=== PATIENT | female | born 1990 | race Caucasian/White ===

== ENCOUNTER → 2021-09-02 | Outpatient (CLI) | payer OTHER ==
[2021-09-02 19:20] LABS: Creatinine, Urine Random 59.2 mg/dL (27.00-270.00); Protein, Urine Random 16.9 mg/dL (0.0-11.9); Protein/Creat Ratio, Ur Random 0.3
== END | disposition home or self-care (01) ==
LOC: LAB SHORT 15:31
PROVIDERS: Obstetrics & Gynecology
DX: O14.93 Unspecified pre-eclampsia, third trimester (principal)
CPT/HCPCS: 82570; 84156; 87077; 87086; 87186

== ENCOUNTER → 2021-09-30 | Outpatient (CLI) | payer OTHER | END | disposition home or self-care (01) | LOC: LAB SHORT 12:05 | DX: Z34.03 Encounter for supervision of normal first pregnancy, third trimester (principal); Z3A.36 36 weeks gestation of pregnancy | CPT/HCPCS: 87081; 87150 ==

== ENCOUNTER 2021-10-25 19:45 | Inpatient (IN) | payer OTHER ==
[~2021-10-25] VITALS: Ht 157.5 cm; Wt 120.0 kg
[2021-10-25] MEDS ORDERED: PRENATAL TABLE1 EAC2 PO (21:10)
[2021-10-25] MEDS ORDERED: LEVSOD100 PO (21:10)
[2021-10-25 21:13] LABS: BASOPHILS ABSOLUTE AUTO 0.02 K/mm3 (0.00-0.23); BASOPHILS PERCENT AUTO 0 % (0-2); EOSINOPHILS ABSOLUTE AUTO 0.06 K/mm3 (0.00-0.68); EOSINOPHILS PERCENT AUTO 1 % (0-6); Hematocrit 33.6 % (33.0-51.0); Hemoglobin 10.7 g/dL (11.5-16.0); IMMATURE GRAN ABSOLUTE AUTO 0.04 K/mm3 (0.00-0.10); IMMATURE GRAN PERCENT AUTO 0 % (0-1); LYMPHOCYTES ABSOLUTE AUTO 1.69 K/mm3 (0.84-5.20); LYMPHOCYTES PERCENT AUTO 15 % (21-46); MONOCYTES ABSOLUTE AUTO 0.66 K/mm3 (0.16-1.47); MONOCYTES PERCENT AUTO 6 % (4-13); Mean Corpuscular HGB 30.8 pg (26.0-34.0); Mean Corpuscular HGB Conc 31.8 g/dL (31.5-36.5); Mean Corpuscular Volume 97 fL (80-100); NEUTROPHILS PERCENT AUTO 78 % (41-73); Platelet Count 203 K/mm3 (150-400); RDW Coefficient Variation 13.9 % (11.7-14.2); RDW Standard Deviation 48.8 fL (35.1-46.3); Red Blood Cell Count 3.47 M/mm3 (3.80-5.20); White Blood Cell Count 11.37 K/mm3 (4.00-11.30)
--- NOTE | 2021-10-25 22:10 | NUR ---
APPROX 2150 DR DIXON CAME INTO PT'S ROOM AFTER US CONFIRMED THERE WAS NO CARDIAC ACTIVITY. LET HER PT KNOW THAT HER BABY HAD PASSED. PT WAS QUEIT. MOM AND AUNT OF PT AT BEDSIDE COMFORTING PT. DR DIXON RECOMENDED PT HAVE A VAGINAL FOR FASTER HEALING AND NO SCAR. MOM OF PT TOLD DR DIXON THAT HER DAUGHTER SHOULD HAVE A C SECTION BECAUSE SHE BELIEVES THAT SHE COULD NOT HANDLE GOING THRU LABOR. DR DIXON SUGGESTED AGAIN FOR A VAGINAL DELIVERY BUT LEFT IT UP TO PT AND FAMILY TO DECIDE. DR DIXON AND [facility] STAFF OUT OF ROOM TO GIVE FAMILY TIME AND SPACE.
--- NOTE | 2021-10-25 22:51 | NUR ---
PT GOING BACK AND FORTH ABOUT HAVING A C SECTION VERSUS A VAGINAL DELIVERY. DR DIXON IN ROOM WITH FAMILY AND PT EDUCATING PT ON RISK/BENEFITS OF EACH DELIVERY ROUTE. DR BEAVER IN HOUSE TALKING WITH DR DIXON. [facility] STAFF STEPPED OUTSIDE TO LET PT DISCUSS WITH FAMILY THE OPTIONS
--- NOTE | 2021-10-26 08:21 | NUR ---
FAMILY ANGRY WANTING C/S NOW DR DIXON CALLED SHE IS HERE
--- NOTE | 2021-10-26 09:40 | NUR ---
10/26/21 0940 Veronica Coreas PRIMARY FOR DEMISE AND FAILED INDUCTION. FEMALE, DEMISED FETUS, DELIVERED AT 0923. TRUE KNOT AND NUCHAL CORD NOTED. CORD BLOOD COLLECTED. HEAD 13.5 INCH, CHEST 14 INCH, LENGTH 20 INCH. WEIGHT 3890 GRAMS, 8 POUNDS 9 OUNCES.
--- NOTE | 2021-10-26 14:45 | NUR ---
HAS NOT WANTED TO SEE THE BABY OR HOLD THE BABY YET AT THIS TIME
--- NOTE | 2021-10-26 14:54 | NUR ---
SEEING BABY FOR FIRST TIME, ENCOURAGEMENT OFFERED
--- NOTE | 2021-10-26 15:43 | NUR ---
Upon being contacted by pt's RN Mario, I visit patient. Pt is lying in bed and crying, her grandmother, Deborah is holding the baby, Reema and pt explains briefly what has happened in the last 24 hrs. She states several time "I want my baby to not be ." I provide grief support. Deborah asks that I provide a blessing. She lays Reema on the bed, I anoint her with blessed oil and provide a prayer and blessing. The pt is quite tearful during the prayer but voices much appreciation for it. Pt shows signs of being comforted and displays evidence of some increase of peace regarding the . She then talks about her other grandmother that she loved dearly and about her and how she predicted that the pt's baby would but that she would be ok. We talk about the meaning of this and the peace that can be gained. Pt then begins to experience greater physical pain, requests her RN Mario return and then asks to rest. I let her rest.
--- NOTE | 2021-10-26 16:02 | NUR ---
LIPS AND FACE INCREASE SWELLING, STATES NOT SOB, BENADRYL GIVEN, STATES NERVOUS ABOUT NOT BREATHING, BIOX APPLIED 91% WHEN SLEEPING, BIOX 93% LUNGS CLEAR
--- NOTE | 2021-10-26 16:12 | NUR ---
BIOX DOWN TO 87% WHEN ASLEEP INCENTIVE SPIROMETER USED, O2 APPLIED AT 1L
--- NOTE | 2021-10-26 16:24 | NUR ---
BIOX AT 97% ON 1 L WILL CONTINUE TO MONITOR
--- NOTE | 2021-10-26 18:30 | NUR ---
CONTINUE O2 AT 1 L NASAL CANUAL WHILE PATIENT WAS SLEEPING TO KEEP BIOX UP, BI0X 96-97% WITH 1 L, WHEN O2 OFF BIOX DROPS TO 87%, DENIES SOB WHILE AWAKE STATES SNORES AND IS ALWAYS TIRED AT HOME, CONTINUE TO MONITOR MAY D/C O2 IF BIOX REMAINS UP, [facility] CARE DONE, PICTURES DONE BY NHAN RADFORD WITH PATIENTS CONSENT
[2021-10-27 07:20] LABS: BASOPHILS ABSOLUTE AUTO 0.02 K/mm3 (0.00-0.23); BASOPHILS PERCENT AUTO 0 % (0-2); EOSINOPHILS ABSOLUTE AUTO 0.07 K/mm3 (0.00-0.68); EOSINOPHILS PERCENT AUTO 1 % (0-6); Hematocrit 26.4 % (33.0-51.0); Hemoglobin 8.9 g/dL (11.5-16.0); IMMATURE GRAN ABSOLUTE AUTO 0.03 K/mm3 (0.00-0.10); IMMATURE GRAN PERCENT AUTO 0 % (0-1); LYMPHOCYTES ABSOLUTE AUTO 1.87 K/mm3 (0.84-5.20); LYMPHOCYTES PERCENT AUTO 21 % (21-46); MONOCYTES ABSOLUTE AUTO 0.61 K/mm3 (0.16-1.47); MONOCYTES PERCENT AUTO 7 % (4-13); Mean Corpuscular HGB 32.1 pg (26.0-34.0); Mean Corpuscular HGB Conc 33.7 g/dL (31.5-36.5); Mean Corpuscular Volume 95 fL (80-100); Mean Platelet Volume 12.4 fL (9.1-12.4); NEUTROPHILS PERCENT AUTO 71 % (41-73); Platelet Count 176 K/mm3 (150-400); RDW Coefficient Variation 13.9 % (11.7-14.2); RDW Standard Deviation 48.4 fL (35.1-46.3); Red Blood Cell Count 2.77 M/mm3 (3.80-5.20)
--- NOTE | 2021-10-27 10:30 | NUR ---
Patient is lying in bed and alert. Patient talks about her restless night, the images she holds in her mind and the guilt she feels for baby Reema's . As we access her coping skills and resources, we talk about ways to frame the event with a more positive perspective and discuss the importance of healthy activities and asking for help where needed. I normalize her expereince and provide therapeutic listening, gentle director counseling bureau and prayer. Patient responds well and shows signs of being comforted. I will contiue to remain available to patient and family.
--- NOTE | 2021-10-27 11:42 | NUR ---
PATIENT STATES ITCHING, MAY BE DO TO SENSITIVE SKIN AND DR ZACK FREEMAN UPDATED BENADRYL PO GIVEN PATIENT WALKING
--- NOTE | 2021-10-27 13:55 | NUR ---
[facility] CALLED THEY WILL PERINATAL SPECIALIST BABY ON 10/28 IN THE AFTERNOON, ALL INFORMATION VERIFIED WITH THEM
[2021-10-28] MEDS ORDERED: Norco 5-325 Ta1 EACH PO (09:18)
[2021-10-28] MEDS ORDERED: IBUP800 PO (09:18)
--- NOTE | 2021-10-28 10:49 | NUR ---
DISCHARGE- PT READY TO GO HOME. UP AND SHOWERED AND IS FEELING OK. PT VERBALIZES UNDERSTANDING OF DC INSTURCTIONS AND FOLLOW UP APPOINTMENTS. PT WATS TO BE SEEN FOR HER FOLLOW UP SO WILL RETURN MONDAY. PT STATES SHE WILL CALL DR DIXON SOONER WITH ANY CHANGES. PT HAS NO COMPLAINTS OR QUESTIONS. DC HOME WITH FAMILY.
== END 2021-10-28 10:40 | disposition home or self-care (01) | DRG 788 ==
LOC: OBS 19:45 → BC 19:46 → OBS 20:01 → BC 20:02
PROVIDERS: ADMIT Obstetrics & Gynecology
PROC: 3E0P7VZ Introduction of Hormone into Female Reproductive, Via Natural or Artificial Opening (ICD-10-PCS; 2021-10-26)
PROC: 3E0234Z Introduction of Serum, Toxoid and Vaccine into Muscle, Percutaneous Approach (ICD-10-PCS; 2021-10-26)
PROC: 10D00Z1 Extraction of Products of Conception, Low, Open Approach (ICD-10-PCS; principal; 2021-10-26 08:30)
DX: O36.4XX0 Maternal care for intrauterine death, not applicable or unspecified (principal); O99.284 Endocrine, nutritional and metabolic diseases complicating childbirth; E03.9 Hypothyroidism, unspecified; Z88.5 Allergy status to narcotic agent; Z3A.33 33 weeks gestation of pregnancy; Z79.899 Other long term (current) drug therapy; O69.2XX0 Labor and delivery complicated by other cord entanglement, with compression, not applicable or unspecified; Z67.11 Type A blood, Rh negative; Z37.1 Single stillbirth
CPT/HCPCS: 36415; 59200; 76815; 85025; 86762; 86850; 86870; 86900; 86901; 88307; 88342; 96372; A9270; J0290; J0690; J0694; J1200; J1885; J2001; J2210; J2370; J2405; J2550; J2590; J2704; J2765; J2791; J3010; J7120

== ENCOUNTER 2022-05-13 19:40 | Emergency (ER) | payer OTHER ==
[~2022-05-13] VITALS: Ht 152.4 cm; Wt 112.6 kg
[~2022-05-13 19:40] MED LIST: IBUP800 PO; LEVSOD100 PO; Norco 5-325 Ta1 EACH PO; PRENATAL TABLE1 EAC2 PO
[2022-05-13 20:20] LABS: BASOPHILS ABSOLUTE AUTO 0.05 K/mm3 (0.00-0.23); BASOPHILS PERCENT AUTO 1 % (0-2); EOSINOPHILS ABSOLUTE AUTO 0.11 K/mm3 (0.00-0.68); EOSINOPHILS PERCENT AUTO 1 % (0-6); Hemoglobin 13.4 g/dL (11.5-16.0); IMMATURE GRAN ABSOLUTE AUTO 0.03 K/mm3 (0.00-0.10); IMMATURE GRAN PERCENT AUTO 0 % (0-1); LYMPHOCYTES ABSOLUTE AUTO 3.16 K/mm3 (0.84-5.20); LYMPHOCYTES PERCENT AUTO 32 % (21-46); MONOCYTES ABSOLUTE AUTO 0.42 K/mm3 (0.16-1.47); MONOCYTES PERCENT AUTO 4 % (4-13); Mean Corpuscular HGB 30.7 pg (26.0-34.0); Mean Corpuscular HGB Conc 33.5 g/dL (31.5-36.5); Mean Corpuscular Volume 92 fL (80-100); Mean Platelet Volume 11.5 fL (9.1-12.4); NEUTROPHILS ABSOLUTE AUTO 6.08 K/mm3 (1.96-9.15); NEUTROPHILS PERCENT AUTO 62 % (41-73); Platelet Count 329 K/mm3 (150-400); RDW Coefficient Variation 13.2 % (11.7-14.2); RDW Standard Deviation 44.3 fL (35.1-46.3); Red Blood Cell Count 4.37 M/mm3 (3.80-5.20); White Blood Cell Count 9.85 K/mm3 (4.00-11.30)
[2022-05-13 20:37] LABS: Albumin, Blood 3.5 g/dL (3.4-5.0); Albumin/Globulin Ratio 0.8 (0.8-1.8); Bilirubin, Total 0.3 mg/dL (0.1-1.0); Bun/Creatinine Ratio 14.5 (12.0-20.0); Calcium, Blood 9.2 mg/dL (8.5-10.1); Creatinine, Blood 0.83 mg/dL (0.40-1.00); Globulin, Blood 4.4 g/dL (2.2-4.0); Potassium, Blood 3.8 mmol/L (3.5-5.5); Total Protein, Blood 7.9 g/dL (6.4-8.2)
== END 2022-05-13 23:49 | disposition home or self-care (01) ==
LOC: ER 19:40
PROVIDERS: Student in an Organized Health Care Education/Training Program
DX: S39.011A Strain of muscle, fascia and tendon of abdomen, initial encounter (principal); R10.12 Left upper quadrant pain; E03.9 Hypothyroidism, unspecified; X58.XXXA Exposure to other specified factors, initial encounter; Z79.890 Hormone replacement therapy; Z88.5 Allergy status to narcotic agent; Z88.8 Allergy status to other drugs, medicaments and biological substances
CPT/HCPCS: 36415; 74177; 80053; 83690; 84703; 85025; A9270; J1885; Q9967

== ENCOUNTER → 2022-09-23 | Outpatient (CLI) | payer OTHER | END | disposition home or self-care (01) | LOC: LAB 13:35 → LAB SHORT 13:35 | DX: N39.0 Urinary tract infection, site not specified (principal) | CPT/HCPCS: 87077; 87086; 87186 ==

== ENCOUNTER → 2022-10-27 | Outpatient (CLI) | payer OTHER ==
[2022-10-27 18:06] LABS: Source, Urine Clean Catch
[2022-10-27 19:39] LABS: Appearance, Urine Cloudy (Clear); Bilirubin, Urine Neg (Neg); Blood, Urine 5+ (Neg); Color, Urine Yellow (P-Yellow); Glucose Qualitative, Urine Neg (Neg); Ketones, Urine Neg (Neg); Leukocyte Esterase, Urine 3+ (Neg); Nitrite, Urine Neg (Neg); Protein, Urine 2+ (Neg); Specific Gravity, Urine 1.015 (1.003-1.022); Urobilinogen, Urine NORM (Normal)
[2022-10-27 19:52] LABS: Bacteria Many /hpf; Squamous Epithelial Cells Many /hpf (Few); Transitional Epithelial Cells Few /hpf (0-Rare); White Blood Cells, Urine 25-50 /hpf (0-5)
[2022-10-30 04:11] LABS: CHLAMYDIA TRACHOMATIS, NAA Negative (Negative)
== END | disposition home or self-care (01) ==
LOC: LAB SHORT 18:04 → LAB 18:04
PROVIDERS: Obstetrics & Gynecology
DX: Z11.3 Encounter for screening for infections with a predominantly sexual mode of transmission (principal); R31.9 Hematuria, unspecified
CPT/HCPCS: 81001; 87077; 87086; 87186; 87491; 87591

== ENCOUNTER → 2022-11-18 | Outpatient (CLI) | payer OTHER ==
[2022-11-21 14:11] LABS: AFP MOM 0.35 (.); AFP VALUE 17.7 ng/mL (.); GEST. AGE ON COLLECTION DATE 21.4 weeks (.); GESTAT. AGE BASED ON Ultrasound (.); INSULIN DEP DIABETES No (.); MATERNAL AGE AT EDD 30.4 yr (.); MULTIPLE GESTATION No (.); OSBR RISK 1 IN 10000 (.); RACE Caucasian (.); TEST RESULTS: *Screen Negative* (.); WEIGHT 256 lbs (.)
== END | disposition home or self-care (01) ==
LOC: LAB SHORT 14:09 → LAB 14:09
PROVIDERS: Advanced Practice Midwife
DX: O09.292 Supervision of pregnancy with other poor reproductive or obstetric history, second trimester (principal)
CPT/HCPCS: 82105

== ENCOUNTER → 2022-12-15 | Outpatient (CLI) | payer OTHER | LOC: LAB SHORT 11:40 | DX: E03.8 Other specified hypothyroidism (principal) | CPT/HCPCS: 84443 ==

== ENCOUNTER → 2023-03-16 | Outpatient (CLI) | payer OTHER ==
[2023-03-16 15:44] LABS: Source, Urine Clean Catch
[2023-03-16 16:54] LABS: Bacteria Many /hpf; Squamous Epithelial Cells Many /hpf (Few); White Blood Cells, Urine 25-50 /hpf (0-5)
[2023-03-16 16:56] LABS: Granular Casts 0-2 /lpf (0)
== END ==
LOC: LAB 15:27 → LAB SHORT 15:27
PROVIDERS: Advanced Practice Midwife
DX: R82.90 Unspecified abnormal findings in urine (principal)
CPT/HCPCS: 81015; 87077; 87086; 87186

== ENCOUNTER 2023-04-14 05:35 | Inpatient (IN) | payer OTHER ==
[~2023-04-14] VITALS: Ht 157.5 cm; Wt 113.6 kg
[2023-04-14] VITALS (20 sets, daily range): BP systolic 115–142; BP diastolic 61–88
[2023-04-14 06:43] LABS: BASOPHILS ABSOLUTE AUTO 0.02 K/mm3 (0.00-0.23); BASOPHILS PERCENT AUTO 0 % (0-2); EOSINOPHILS ABSOLUTE AUTO 0.07 K/mm3 (0.00-0.68); EOSINOPHILS PERCENT AUTO 1 % (0-6); Hematocrit 35.1 % (33.0-51.0); Hemoglobin 11.4 g/dL (11.5-16.0); IMMATURE GRAN ABSOLUTE AUTO 0.04 K/mm3 (0.00-0.10); IMMATURE GRAN PERCENT AUTO 0 % (0-1); LYMPHOCYTES ABSOLUTE AUTO 2.42 K/mm3 (0.84-5.20); LYMPHOCYTES PERCENT AUTO 23 % (21-46); MONOCYTES ABSOLUTE AUTO 0.49 K/mm3 (0.16-1.47); MONOCYTES PERCENT AUTO 5 % (4-13); Mean Corpuscular HGB 29.8 pg (26.0-34.0); Mean Corpuscular HGB Conc 32.5 g/dL (31.5-36.5); Mean Corpuscular Volume 92 fL (80-100); Mean Platelet Volume 12.6 fL (9.1-12.4); NEUTROPHILS ABSOLUTE AUTO 7.52 K/mm3 (1.96-9.15); NEUTROPHILS PERCENT AUTO 71 % (41-73); Platelet Count 234 K/mm3 (150-400); RDW Coefficient Variation 14.7 % (11.7-14.2); RDW Standard Deviation 49.2 fL (35.1-46.3); Red Blood Cell Count 3.83 M/mm3 (3.80-5.20); White Blood Cell Count 10.56 K/mm3 (4.00-11.30)
[2023-04-14] MEDS ORDERED: ALBU2.5V5 INH (06:45)
[2023-04-14] MEDS ORDERED: ASPI81CH PO (06:46)
[2023-04-14] MEDS ORDERED: Famotidine10 MG/1 ML IV (06:46)
[2023-04-14 09:12] LABS: PCO2 Cord - Venous 50.3 mmHg (40-50); PO2 Cord - Venous 29.8 mmHg (28-32); pH Umbilical Cord - Venous 7.32 (7.26-7.35)
[2023-04-14] MEDS ORDERED: SYNTHROID150 MC1 PO (09:53)
[2023-04-15 04:27] VITALS: BP 115/86
[2023-04-15 07:24] VITALS: BP 128/71
[2023-04-15 07:31] LABS: BASOPHILS ABSOLUTE AUTO 0.04 K/mm3 (0.00-0.23); BASOPHILS PERCENT AUTO 1 % (0-2); EOSINOPHILS ABSOLUTE AUTO 0.08 K/mm3 (0.00-0.68); EOSINOPHILS PERCENT AUTO 1 % (0-6); Hematocrit 31.1 % (33.0-51.0); Hemoglobin 9.9 g/dL (11.5-16.0); IMMATURE GRAN ABSOLUTE AUTO 0.04 K/mm3 (0.00-0.10); IMMATURE GRAN PERCENT AUTO 1 % (0-1); LYMPHOCYTES PERCENT AUTO 26 % (21-46); MONOCYTES ABSOLUTE AUTO 0.47 K/mm3 (0.16-1.47); MONOCYTES PERCENT AUTO 5 % (4-13); Mean Corpuscular HGB 29.5 pg (26.0-34.0); Mean Corpuscular HGB Conc 31.8 g/dL (31.5-36.5); Mean Corpuscular Volume 93 fL (80-100); Mean Platelet Volume 12.5 fL (9.1-12.4); NEUTROPHILS ABSOLUTE AUTO 5.89 K/mm3 (1.96-9.15); NEUTROPHILS PERCENT AUTO 67 % (41-73); Platelet Count 183 K/mm3 (150-400); RDW Coefficient Variation 14.8 % (11.7-14.2); RDW Standard Deviation 50.1 fL (35.1-46.3); Red Blood Cell Count 3.36 M/mm3 (3.80-5.20); White Blood Cell Count 8.82 K/mm3 (4.00-11.30)
[2023-04-15 11:29] VITALS: BP 126/63
--- NOTE | 2023-04-15 13:37 | NUR ---
dcd pt simethacone, it has a chalky taste and pt is allergic to chalk. believes this caused her nausea/vomiting this morning. pt encoruaged to ambulate
--- NOTE | 2023-04-15 14:45 | NUR ---
pt reports sweaty and a little itchy, she thinks its because she is allergic to oxycodone,she wants to try going without it, she is aware she is due for tylenol at anytime, but needs to space out the tylenol and motrin so they will work better if not going to take oxycodone anymore, pt needs to let rn know when she wants it. at 1515, pt reports still doing well. just a little itchy/sweaty, getting better, will continue to watch pt,
[2023-04-15 16:17] VITALS: BP 126/83
--- NOTE | 2023-04-15 16:20 | NUR ---
pt feeling better, less itchy, no more sweating, pt has not asked for tylenol aware it is due anytime
--- NOTE | 2023-04-15 18:52 | NUR ---
PT SO IS GOING TO GO HOME AND GET HER PUMP. PT IS FRUSTRATED, REPORTS BREASTS ARE TOO BIG, SHE IS SO FRUSTRATED YOU CANT REASON WITH HER OR HELP HER, ENCOURAGING PUMPING AND FEEDING CAUSE THAT IS WHAT PT WANTS TO DO FOR NOW
[2023-04-15 19:54] VITALS: BP 137/67
--- NOTE | 2023-04-15 20:23 | NUR ---
PATIENT HAD ALL FOUR BED RAILS UP ON BED AND I TOLD THE PATIENT WE HAVE TO PUT DOWN ONE OF THE BOTTOM BED RAILS BECAUSE HAVING ALL FOUR BED RAILS UP IS CONSIDERED A RESTRAINT AND THERE HAS TO BE A DOCTORS ORDER FOR THAT. PATIENT WAS UPSET AND SAID "THATS STUPID, ITS JUST A RAIL" I INFORMED PATIENT OF THE SAFETY RISKS WITH ALL FOUR RAILS UP. PATIENTS MOTHER WAS ALSO IN ROOM AND WAS FRUSTRATED THAT I WOULDNT LEAVE ALL RAILS UP WELL.
[2023-04-15 23:10] VITALS: BP 132/68
[2023-04-16 04:01] VITALS: BP 145/67
--- NOTE | 2023-04-16 07:16 | NUR ---
0630: UPON ROUNDING FOUND MOM CO-SLEEPING WITH IN BED. HELPED BROUGHT BACK TO [facility]. REINFORCED ABOUT SAFE SLEEPING POLICY TO MOM. MOM SHOWED UNDERSTANDING.
--- NOTE | 2023-04-16 07:16 | NUR ---
04/15/23 AT 1954: PATIENT REQUESTED ALL BED RAILS UP
[2023-04-16 07:41] VITALS: BP 134/74
--- NOTE | 2023-04-16 09:26 | NUR ---
pt is dressed ready to go, wants to leave now, pt is aware that trista aguiladeo has to come and make rounds to dc her home, they were unable to picking supervisor scripts yesterday and need a new script sent, will let trista correia know when he makes rounds
--- NOTE | 2023-04-16 09:28 | NUR ---
dc instructions gone over with pt verbalize understanding, denies any questions, core referal done. scripts were sent yesterday but not able to excelsior picker due to being closed, will ask cnm to resend today.
[2023-04-16] MEDS ORDERED: ACET500 PO (09:35)
[2023-04-16] MEDS ORDERED: IBUP800 PO (09:35)
[2023-04-16 11:04] VITALS: BP 134/80
--- NOTE | 2023-04-16 11:28 | NUR ---
DC HOME WITH BABY, CHOOSE TO AMBULATE OUT, HAS DC INSTRUCTIONS, NEW SCRIPTS SENT TO [facility], HAS PPFU AND TSB CHECK FOR BABY. HAS DR IGLESIAS TO CALL IF HAS QUESTIONS, HAS MOM FOR SUPPORT AND REPORTS HER BOYFRIEND AT HOME
== END 2023-04-16 11:30 | disposition home or self-care (01) | DRG 788 ==
LOC: OBS 05:35 → BC 05:45
PROVIDERS: ADMIT Obstetrics & Gynecology
PROC: 10D00Z1 Extraction of Products of Conception, Low, Open Approach (ICD-10-PCS; principal; 2023-04-14 08:00)
DX: O32.0XX0 Maternal care for unstable lie, not applicable or unspecified (principal); Z37.0 Single live birth; Z3A.39 39 weeks gestation of pregnancy; O34.211 Maternal care for low transverse scar from previous cesarean delivery; O99.284 Endocrine, nutritional and metabolic diseases complicating childbirth; E03.9 Hypothyroidism, unspecified; O99.214 Obesity complicating childbirth; O35.8XX0 Maternal care for other (suspected) fetal abnormality and damage, not applicable or unspecified; O99.344 Other mental disorders complicating childbirth; F41.9 Anxiety disorder, unspecified; O99.52 Diseases of the respiratory system complicating childbirth; J45.909 Unspecified asthma, uncomplicated; Z87.59 Personal history of other complications of pregnancy, childbirth and the puerperium; Z91.419 Personal history of unspecified adult abuse
CPT/HCPCS: 36415; 82803; 85025; 85460; 86850; 86900; 86901; 86923; A9270; J0690; J1885; J2405; J2590; J2765; J2791; J7120

== ENCOUNTER → 2023-05-25 | Outpatient (CLI) | payer OTHER ==
[~2023-05-25] MED LIST changes: +ACET500 PO; +ALBU2.5V5 INH; +ASPI81CH PO; +Famotidine10 MG/1 ML IV; +SYNTHROID150 MC1 PO
[2023-05-25 12:56] LABS: Source, Urine Voided
[2023-05-25 13:53] LABS: Appearance, Urine Hazy (Clear); Bilirubin, Urine Neg (Neg); Blood, Urine 2+ (Neg); Glucose Qualitative, Urine Neg (Neg); Ketones, Urine Neg (Neg); Leukocyte Esterase, Urine 3+ (Neg); Nitrite, Urine Pos (Neg); Protein, Urine 1+ (Neg); Urobilinogen, Urine NORM (Normal); pH, Urine 6.5 (5.0-8.0)
[2023-05-25 14:04] LABS: Color, Urine Pale Yellow (P-Yellow)
[2023-05-25 14:05] LABS: Amorphous Mod (0-Heavy); Bacteria Many /hpf; Squamous Epithelial Cells Few /hpf (Few); Transitional Epithelial Cells Rare /hpf (0-Rare)
== END ==
LOC: LAB SHORT 10:15 → LAB 10:15
PROVIDERS: Advanced Practice Midwife
DX: E03.8 Other specified hypothyroidism (principal); R10.10 Upper abdominal pain, unspecified; T81.41XD Infection following a procedure, superficial incisional surgical site, subsequent encounter
CPT/HCPCS: 81001; 84443; 87077; 87086; 87186

== ENCOUNTER 2023-12-07 20:28 | Emergency (ER) | payer OTHER ==
[~2023-12-07] VITALS: Ht 157.5 cm; Wt 99.8 kg
[2023-12-07 21:22] LABS: BASOPHILS ABSOLUTE AUTO 0.04 K/mm3 (0.00-0.23); BASOPHILS PERCENT AUTO 0 % (0-2); EOSINOPHILS ABSOLUTE AUTO 0.07 K/mm3 (0.00-0.68); EOSINOPHILS PERCENT AUTO 1 % (0-6); Hematocrit 39.4 % (33.0-51.0); Hemoglobin 13.1 g/dL (11.5-16.0); IMMATURE GRAN ABSOLUTE AUTO 0.03 K/mm3 (0.00-0.10); IMMATURE GRAN PERCENT AUTO 0 % (0-1); LYMPHOCYTES ABSOLUTE AUTO 2.74 K/mm3 (0.84-5.20); LYMPHOCYTES PERCENT AUTO 25 % (21-46); MONOCYTES ABSOLUTE AUTO 0.42 K/mm3 (0.16-1.47); MONOCYTES PERCENT AUTO 4 % (4-13); Mean Corpuscular HGB 30.3 pg (26.0-34.0); Mean Corpuscular HGB Conc 33.2 g/dL (31.5-36.5); Mean Corpuscular Volume 91 fL (80-100); Mean Platelet Volume 10.8 fL (9.1-12.4); NEUTROPHILS ABSOLUTE AUTO 7.86 K/mm3 (1.96-9.15); NEUTROPHILS PERCENT AUTO 70 % (41-73); Platelet Count 331 K/mm3 (150-400); RDW Coefficient Variation 13.3 % (11.7-14.2); RDW Standard Deviation 44.3 fL (35.1-46.3); Red Blood Cell Count 4.33 M/mm3 (3.80-5.20); White Blood Cell Count 11.16 K/mm3 (4.00-11.30)
[2023-12-07 21:43] LABS: Albumin, Blood 3.5 g/dL (3.4-5.0); Albumin/Globulin Ratio 0.8 (0.8-1.8); Bilirubin, Total 0.5 mg/dL (0.1-1.0); Bun/Creatinine Ratio 12.8 (12.0-20.0); Creatinine, Blood 0.86 mg/dL (0.40-1.00); Globulin, Blood 4.3 g/dL (2.2-4.0); Potassium, Blood 3.7 mmol/L (3.5-5.5); Total Protein, Blood 7.8 g/dL (6.4-8.2)
[2023-12-07 23:37] LABS: Source, Urine Clean Catch
[2023-12-07 23:40] LABS: Bilirubin, Urine Neg (Neg); Blood, Urine 2+ (Neg); Glucose Qualitative, Urine Neg (Neg); Ketones, Urine Neg (Neg); Leukocyte Esterase, Urine 3+ (Neg); Nitrite, Urine Neg (Neg); Protein, Urine 2+ (Neg); Specific Gravity, Urine 1.015 (1.003-1.022); Urobilinogen, Urine NORM (Normal)
[2023-12-07] MEDS ORDERED: NS 1,000 ML IV SCH (23:40)
[2023-12-07] MEDS ORDERED: Famotidine 10 MG/ML 2ML Vial IV ONE (23:40)
[2023-12-07] MEDS ORDERED: Ondansetron HCl 2 MG / ML 2ML Vial IV ONE (23:40)
[2023-12-07 23:48] LABS: Appearance, Urine Cloudy (Clear); Color, Urine Yellow (P-Yellow)
[2023-12-07 23:50] LABS: Amorphous Mod (0-Heavy); Bacteria Many /hpf; Squamous Epithelial Cells Mod /hpf (Few); White Blood Cells, Urine 25-50 /hpf (0-5)
[2023-12-07 23:50] LABS: Magnesium, Blood 2.1 mg/dL (1.6-2.4)
[2023-12-07] MEDS ORDERED: ACET500 PO (23:51)
[2023-12-07] MEDS ORDERED: FAMO20 PO (23:51)
[2023-12-07] MEDS ORDERED: ONDA4ODT MM (23:51)
[2023-12-08 00:09] VITALS: BP 145/94
== END 2023-12-08 00:09 | disposition home or self-care (01) ==
LOC: ER 20:28
PROVIDERS: Student in an Organized Health Care Education/Training Program
DX: R10.11 Right upper quadrant pain (principal); R11.2 Nausea with vomiting, unspecified; E03.9 Hypothyroidism, unspecified; J45.909 Unspecified asthma, uncomplicated; Z79.82 Long term (current) use of aspirin; Z79.899 Other long term (current) drug therapy; Z88.5 Allergy status to narcotic agent; Z91.013 Allergy to seafood; Z88.8 Allergy status to other drugs, medicaments and biological substances
CPT/HCPCS: 80053; 81001; 83690; 83735; 84703; 85025; 87077; 87086; 87186; 93005; 93010; 96374; 96375; 99284-25; J2405

== ENCOUNTER 2024-04-07 10:47 | Observation (INO) | payer OTHER ==
[~2024-04-07] VITALS: Ht 152.4 cm; Wt 121.6 kg
[~2024-04-07 10:47] MED LIST changes: +FAMO20 PO; +ONDA4ODT MM
[2024-04-07 11:59] LABS: BASOPHILS ABSOLUTE AUTO 0.02 K/mm3 (0.00-0.23); BASOPHILS PERCENT AUTO 0 % (0-2); EOSINOPHILS ABSOLUTE AUTO 0.01 K/mm3 (0.00-0.68); EOSINOPHILS PERCENT AUTO 0 % (0-6); Hematocrit 39.6 % (33.0-51.0); Hemoglobin 13.2 g/dL (11.5-16.0); IMMATURE GRAN ABSOLUTE AUTO 0.01 K/mm3 (0.00-0.10); IMMATURE GRAN PERCENT AUTO 0 % (0-1); LYMPHOCYTES ABSOLUTE AUTO 1.27 K/mm3 (0.84-5.20); LYMPHOCYTES PERCENT AUTO 15 % (21-46); MONOCYTES ABSOLUTE AUTO 0.54 K/mm3 (0.16-1.47); MONOCYTES PERCENT AUTO 6 % (4-13); Mean Corpuscular HGB 30.8 pg (26.0-34.0); Mean Corpuscular HGB Conc 33.3 g/dL (31.5-36.5); Mean Corpuscular Volume 92 fL (80-100); Mean Platelet Volume 10.6 fL (9.1-12.4); NEUTROPHILS ABSOLUTE AUTO 6.75 K/mm3 (1.96-9.15); NEUTROPHILS PERCENT AUTO 79 % (41-73); Platelet Count 256 K/mm3 (150-400); RDW Coefficient Variation 13.2 % (11.7-14.2); RDW Standard Deviation 44.4 fL (35.1-46.3); Red Blood Cell Count 4.29 M/mm3 (3.80-5.20)
[2024-04-07] MEDS ORDERED: Ketorolac Tromethamine 30mg Vial IV ONE (12:10)
[2024-04-07] MEDS ORDERED: Ondansetron HCl 2 MG / ML 2ML Vial IV ONE ×2 (12:10→14:25)
[2024-04-07] MEDS ORDERED: Lactated Ringer's 1,000 ML IV ONE (12:10)
[2024-04-07 12:31] LABS: Albumin, Blood 3.5 g/dL (3.4-5.0); Albumin/Globulin Ratio 0.8 (0.8-1.8); Bilirubin, Total 0.7 mg/dL (0.1-1.0); Bun/Creatinine Ratio 15.9 (12.0-20.0); Calcium, Blood 9.2 mg/dL (8.5-10.1); Creatinine, Blood 0.94 mg/dL (0.40-1.00); Globulin, Blood 4.6 g/dL (2.2-4.0); Magnesium, Blood 1.9 mg/dL (1.6-2.4); Total Protein, Blood 8.1 g/dL (6.4-8.2)
[2024-04-07 12:31] LABS: Source, Urine Clean Catch
[2024-04-07 12:36] LABS: Appearance, Urine Cloudy (Clear); Bilirubin, Urine Neg (Neg); Blood, Urine 2+ (Neg); Color, Urine Yellow (P-Yellow); Glucose Qualitative, Urine Neg (Neg); Ketones, Urine Neg (Neg); Leukocyte Esterase, Urine 3+ (Neg); Nitrite, Urine Pos (Neg); Protein, Urine 2+ (Neg); Urobilinogen, Urine NORM (Normal)
[2024-04-07 12:43] LABS: Bacteria Many /hpf; White Blood Cells, Urine 50-100 /hpf (0-5)
[2024-04-07 12:44] LABS: Amorphous Light (0-Heavy); Squamous Epithelial Cells Mod /hpf (Few)
[2024-04-07] MEDS ORDERED: Piperacillin/Tazobactam Sod 3.375 GM in NS 100 ML IV ONE (14:50)
[2024-04-07] MEDS ORDERED: Ketorolac Tromethamine 30mg Vial IV PRN (14:50)
[2024-04-07] MEDS ORDERED: Ondansetron HCl 2 MG / ML 2ML Vial IV PRN (14:50)
[2024-04-07] MEDS ORDERED: NS KCl 20mEq 1,000 ML IV SCH (14:50)
[2024-04-07 15:57] VITALS: BP 118/76
--- NOTE | 2024-04-07 16:26 | NUR ---
PT TO ROOM 226 FROM ER, A/O X4, IND IN ROOM. VOIDING IN BR UPON ARRIVAL. VSS. IV FLUIDS RUNNING ORDERED. PT CHANGED IND INTO GOWN. PT ORIENTED TO ROOM AND CALL LIGHT. CALL LIGHT IN REACH.
[2024-04-07 20:04] VITALS: BP 123/52
--- NOTE | 2024-04-07 20:04 | NUR ---
SHIFT SUMMARY NO ACUTE CHANGES SINCE PT'S ARRIVAL. PAIN TOLERABLE, NO N/V/D. TOLERATING REG DIET. PT TO CONSULT W/ DR WILEY TOMORROW, NPO AFTER MIDNIGHT. REPORT TO BETO FRAZIER. PT SLEEPING PEACEFULLY W/ CALL LIGHT IN REACH.
[2024-04-07 22:49] VITALS: BP 160/81
[2024-04-07 23:00] VITALS: BP 160/81
[2024-04-07] MEDS ORDERED: HYDROmorphone HCl/Pf 1MG SYR IV PRN (23:10)
[2024-04-08] VITALS (14 sets, daily range): BP systolic 106–181; BP diastolic 66–101
--- NOTE | 2024-04-08 06:14 | NUR ---
SHIFT SUMMARY PT A/OX4 WITH VSS. PAIN MANAGED PER EMAR. IVF INFUSING PER ORDERS. NPO SINCE MIDNIGHT. SBA TO BATHROOM DUE TO LIGHTHEADEDNESS AFTER PAIN MEDICATION. PLAN FOR LAP BRAD TODAY. PT CURRENTLY RESTING IN BED WITH CALL LIGHT IN REACH. WILL GIVE REPORT TO ONCOMING RN
[2024-04-08] MEDS ORDERED: FLU VACC TS2024-25(6MOS UP)/PF 45 MCG/0.5 ML SYRINGE IM SCH (07:45)
[2024-04-08] MEDS ORDERED: HYDROmorphone HCl/Pf 1MG SYR IV PRN (07:45)
[2024-04-08] MEDS ORDERED: Indocyanine Green 25 MG Vial IV ONE (07:45)
[2024-04-08] MEDS ORDERED: OxyCODONE HCL 5 MG TAB PO PRN (07:50)
[2024-04-08] MEDS ORDERED: Lactated Ringer's 1,000 ML IV SCH ×2 (07:50→14:20)
[2024-04-08] MEDS ORDERED: Ondansetron HCl 2 MG / ML 2ML Vial IV PRN (07:50)
[2024-04-08 08:43] LABS: Albumin, Blood 2.6 g/dL (3.4-5.0); Albumin/Globulin Ratio 0.7 (0.8-1.8); Bilirubin, Total 0.5 mg/dL (0.1-1.0); Calcium, Blood 8.2 mg/dL (8.5-10.1); Creatinine, Blood 0.83 mg/dL (0.40-1.00); Globulin, Blood 3.6 g/dL (2.2-4.0); Potassium, Blood 3.9 mmol/L (3.5-5.5); Total Protein, Blood 6.2 g/dL (6.4-8.2)
[2024-04-08] MEDS ORDERED: TraMADol HCl 50 MG Tab PO PRN (11:45)
--- NOTE | 2024-04-08 14:20 | NUR ---
PT TO PREOP FROM ROOM 226.
--- NOTE | 2024-04-08 14:20 | NUR ---
PT TO PREOP FROM ROOM 226.
--- NOTE | 2024-04-08 14:25 | NUR ---
PT HAS 20G IV TO RIGHT AC THAT FLUSHES WELL AND FLOWS TO GRAVITY.
--- NOTE | 2024-04-08 14:29 | NUR ---
PT BROUGHT FROM FLOOR TO DAY SURGERY FOR PROCEDURE. History, Chart, Medications and Allergies reviewed before start of procedure. Lungs clear T/O to Auscultation. Patient confirms NPO status and agrees with scheduled surgery. Pre-Op teaching done. Pt verbalizes understanding. PT BELONGINGS LEFT IN PERSONAL ROOM ON SURGICAL FLOOR. PT PHONE TAKEN BACK TO ROOM 226 FOR SAFEKEEPING.
[2024-04-08] MEDS ORDERED: CeFAZolin Sodium 3,000 MG in NS 100 ML IV SCH (14:40)
[2024-04-08] MEDS ORDERED: Bupivacaine 0.5% HCl 5 MG/ML 30MLVIAL ONE (15:39)
[2024-04-08] MEDS ORDERED: Midazolam HCl 1MG / ML 2ML Vial IV ONE (15:45)
[2024-04-08] MEDS ORDERED: propofoL 20 ML IV ONE (16:01)
[2024-04-08] MEDS ORDERED: FentaNYL Citrate 50 MCG/ML 2 ML Injection ONE ×2 (16:01→16:35)
[2024-04-08] MEDS ORDERED: Ondansetron HCl 2 MG / ML 2ML Vial ONE (16:08)
[2024-04-08] MEDS ORDERED: Dexamethasone Sod Phos 10 MG/ML 1ML VIAL ONE (16:08)
[2024-04-08] MEDS ORDERED: Rocuronium Bromide 10 MG/ML 5ML Injection IV ONE (16:34)
[2024-04-08] MEDS ORDERED: SuccINYLCHOLINE Chloride 100 MG/5 ML 5MLSYR ONE (16:34)
[2024-04-08] MEDS ORDERED: Ketorolac Tromethamine 30mg Vial ONE ×2 (16:35→16:37)
[2024-04-08] MEDS ORDERED: Sugammadex Sodium 200 MG/2ML SDV (100 MG/ML) ONE (17:21)
[2024-04-08] MEDS ORDERED: Ipratropium/Albuterol SulF 2.5-0.5MG/3 ML Amp ONE (17:42)
[2024-04-08] MEDS ORDERED: Prochlorperazine Edisylate 10 mg Vial ONE (17:48)
[2024-04-08] MEDS ORDERED: Labetalol HCL 5 MG/ML 4ML Injection (Single Dose) ONE (18:10)
[2024-04-08] MEDS ORDERED: TRAM50 PO (18:22)
[2024-04-08] MEDS ORDERED: Metoclopramide HCl 5MG / ML 2ML Vial ONE (18:35)
--- NOTE | 2024-04-08 19:54 | NUR ---
POST OP NOTE PT TO ROOM 226 FROM PACU. PT IS RESPONSIVE, FOLLOWING COMMANDS, UNCOOPERATIVE W/ SOME CARE, PT STATES WE ARE "TORTURING HER" BY GETTING HER VITAL SIGNS. VSS. IV FLUIDS RUNNING ORDERED. PT STATES PAIN IS TOLERABLE UPON ARRIVAL BUT IS NAUSEOUS, 100ML EMESIS OUT. PT RECIEVED ZOFRAN, COMPAZINE, AND REGLAN POST OP PER [employer]ION CONTRACT REPRESENTATIVE. COLD WASHCLOTH APPLIED, PT NOW RESTING. 2LNC W/ O2 SATS >90%. PAS ON. DRESSINGS C/D/I. PT STATES SHE NOW WOULD LIKE TO STAY ANOTHER NIGHT. CALL LIGHT IN REACH, BED ALARM ON PT IS STILL DROWSY.
[2024-04-09 00:20] VITALS: BP 140/92
[2024-04-09 05:43] VITALS: BP 103/52
--- NOTE | 2024-04-09 06:45 | NUR ---
SHIFT SUMMARY NOC. PT POD 1 FOR LAP BRAD. PT A/O X3-4. PT IRRITABLE AT TIMES. PT HAVING N/V THIS SHIFT MEDICATED FOR NAUSEA AND PAIN. LAP SITES C/D/I. PT VOIDING URINE. PT MAKES NEEDS KNOWN, CALL LIGHT IN REACH.
[2024-04-09 07:28] VITALS: BP 112/69
[2024-04-09] MEDS ORDERED: Enoxaparin 40 MG/0.4 ML SYR SC SCH (09:00)
--- NOTE | 2024-04-09 10:12 | NUR ---
DISCHARGE NOTE THIS RN ASSUMED CARE AT APPROX 0715. PATIENT ALERT AND ORIENTED X4. COMMUNICATES NEEDS EFFECTIVELY. VSS. POD 1 LAP BRAD W/ X5 LAP SITES. SITES C/D/I. PAIN MANAGED WITH PRESCRIBED THERAPY. REPORTED MILD NAUSEA FOLLOWING BREAKFAST THIS MORNING - IV ZOFRAN ADMINISTERED PER EMAR WITH RELIEF. IS TOLERATING WATER AND SMALL BITES OF FOOD. VOIDING - DENIES PAIN OR IRRITATION. MD WILEY AT BEDSIDE THIS MORNING - CLEARED FOR DC HOME. IV REMOVED. DC EDUCATION PROVIDED - PATIENT STATES UNDERSTANDING. PRESCRIPTIONS ELECTRONICALLY SENT BY MD WILEY TO [facility] - PATIENT STATES THAT HER AUNT IS PICKING UP THE MEDICATIONS. PATIENT TRANSFERRED TO PERSONAL VEHICLE VIA WHEELCHAIR AT APPROX 1005. PERSONAL BELONGINGS WITH PATIENT.
== END 2024-04-09 10:00 | disposition home or self-care (01) ==
LOC: ER 10:47 → SURS 10:48
PROVIDERS: Physician Assistant; Student in an Organized Health Care Education/Training Program; Surgery; ADMIT Surgery
PROC: 0FT44ZZ Resection of Gallbladder, Percutaneous Endoscopic Approach (ICD-10-PCS; principal; 2024-04-08 15:00)
DX: K80.12 Calculus of gallbladder with acute and chronic cholecystitis without obstruction (principal); J45.909 Unspecified asthma, uncomplicated; E86.0 Dehydration; Z88.5 Allergy status to narcotic agent; Z88.8 Allergy status to other drugs, medicaments and biological substances; Z91.013 Allergy to seafood
CPT/HCPCS: 36415; 74177; 76705; 80053; 81001; 83690; 83735; 84703; 85025; 87077; 87086; 87186; 88304; 96361; 96365-59; 96368; 96372; 96375; 96376; 99285-25; A9270; G0378; J0330; J0690; J0780; J1100; J1171; J1650; J1885; J2250; J2405; J2543; J2704; J2765; J3010; J3480; J7120; Q9967

== ENCOUNTER 2025-02-06 19:08 | Emergency (ER) | payer OTHER ==
[~2025-02-06] VITALS: Ht 154.9 cm; Wt 113.4 kg
[~2025-02-06 19:08] MED LIST changes: +TRAM50 PO
[2025-02-06 19:43] LABS: BASOPHILS ABSOLUTE AUTO 0.05 K/mm3 (0.00-0.23); BASOPHILS PERCENT AUTO 0 % (0-2); EOSINOPHILS ABSOLUTE AUTO 0.04 K/mm3 (0.00-0.68); EOSINOPHILS PERCENT AUTO 0 % (0-6); Hematocrit 40.1 % (33.0-51.0); Hemoglobin 13.4 g/dL (11.5-16.0); IMMATURE GRAN ABSOLUTE AUTO 0.03 K/mm3 (0.00-0.10); IMMATURE GRAN PERCENT AUTO 0 % (0-1); LYMPHOCYTES ABSOLUTE AUTO 2.31 K/mm3 (0.84-5.20); LYMPHOCYTES PERCENT AUTO 18 % (21-46); MONOCYTES ABSOLUTE AUTO 0.46 K/mm3 (0.16-1.47); MONOCYTES PERCENT AUTO 4 % (4-13); Mean Corpuscular HGB Conc 33.4 g/dL (31.5-36.5); Mean Corpuscular Volume 94 fL (80-100); NEUTROPHILS ABSOLUTE AUTO 10.09 K/mm3 (1.96-9.15); NEUTROPHILS PERCENT AUTO 78 % (41-73); NRBC ABSOLUTE 0.00 K/mm3 (0.00-0.02); NRBC Auto 0.0 /100 WBC (0.0-0.2); Platelet Count 272 K/mm3 (150-400); RDW Coefficient Variation 12.5 % (11.7-14.2); RDW Standard Deviation 43.4 fL (35.1-46.3)
[2025-02-06 20:18] LABS: Alanine Aminotransfer (ALT/SGP 41.0 U/L (12-78); Albumin, Blood 3.7 g/dL (3.4-5.0); Albumin/Globulin Ratio 0.9 (0.8-1.8); Anion Gap 7.0 mmol/L (3-11); Aspartate Aminotrans (AST/SGOT 26.0 U/L (12-37); Beta HCG, Quantitative, Serum 3428.0 mIU/mL (0-3); Bilirubin, Total 0.5 mg/dL (0.1-1.0); Blood Urea Nitrogen 14.0 mg/dL (8-24); CO2, Blood 27.0 mmol/L (21-32); Calcium, Blood 9.0 mg/dL (8.5-10.1); Chloride, Blood 105.0 mmol/L (98-108); Creatinine, Blood 0.81 mg/dL (0.40-1.00); Globulin, Blood 4.0 g/dL (2.2-4.0); Glucose, Blood 96.0 mg/dL (70-99); Potassium, Blood 3.6 mmol/L (3.5-5.5); Sodium, Blood 135.0 mmol/L (136-145); Total Protein, Blood 7.7 g/dL (6.4-8.2)
[2025-02-06 20:30] VITALS: BP 172/98
[2025-02-06] MEDS ORDERED: Ketorolac Tromethamine 15mg Vial IV ONE (21:05)
== END 2025-02-06 21:36 | disposition home or self-care (01) ==
LOC: ER 19:08
PROVIDERS: Student in an Organized Health Care Education/Training Program
DX: O03.9 Complete or unspecified spontaneous abortion without complication (principal)
CPT/HCPCS: 76801; 76817; 80053; 84702; 85025; 86900; 86901; 96374; 99284-25; A9270; J1885

== ENCOUNTER 2025-02-08 14:46 | Emergency (ER) | payer OTHER ==
[~2025-02-08] VITALS: Ht 154.9 cm; Wt 113.4 kg
[2025-02-08 15:29] LABS: BASOPHILS ABSOLUTE AUTO 0.04 K/mm3 (0.00-0.23); BASOPHILS PERCENT AUTO 0 % (0-2); EOSINOPHILS ABSOLUTE AUTO 0.08 K/mm3 (0.00-0.68); EOSINOPHILS PERCENT AUTO 1 % (0-6); Hematocrit 38.7 % (33.0-51.0); Hemoglobin 13.1 g/dL (11.5-16.0); IMMATURE GRAN ABSOLUTE AUTO 0.04 K/mm3 (0.00-0.10); IMMATURE GRAN PERCENT AUTO 0 % (0-1); LYMPHOCYTES ABSOLUTE AUTO 2.09 K/mm3 (0.84-5.20); LYMPHOCYTES PERCENT AUTO 18 % (21-46); MONOCYTES ABSOLUTE AUTO 0.56 K/mm3 (0.16-1.47); MONOCYTES PERCENT AUTO 5 % (4-13); Mean Corpuscular HGB Conc 33.9 g/dL (31.5-36.5); Mean Corpuscular Volume 95 fL (80-100); NEUTROPHILS ABSOLUTE AUTO 8.64 K/mm3 (1.96-9.15); NEUTROPHILS PERCENT AUTO 76 % (41-73); NRBC ABSOLUTE 0.00 K/mm3 (0.00-0.02); NRBC Auto 0.0 /100 WBC (0.0-0.2); Platelet Count 291 K/mm3 (150-400); RDW Coefficient Variation 12.4 % (11.7-14.2); RDW Standard Deviation 43.2 fL (35.1-46.3)
[2025-02-08 15:50] LABS: Alanine Aminotransfer (ALT/SGP 46.0 U/L (12-78); Albumin, Blood 3.9 g/dL (3.4-5.0); Albumin/Globulin Ratio 1.0 (0.8-1.8); Anion Gap 8.0 mmol/L (3-11); Aspartate Aminotrans (AST/SGOT 21.0 U/L (12-37); Beta HCG, Quantitative, Serum 682.0 mIU/mL (0-3); Bilirubin, Total 0.5 mg/dL (0.1-1.0); Blood Urea Nitrogen 14.0 mg/dL (8-24); CO2, Blood 26.0 mmol/L (21-32); Calcium, Blood 9.0 mg/dL (8.5-10.1); Chloride, Blood 107.0 mmol/L (98-108); Creatinine, Blood 0.7 mg/dL (0.40-1.00); Globulin, Blood 3.8 g/dL (2.2-4.0); Glucose, Blood 93.0 mg/dL (70-99); Potassium, Blood 3.7 mmol/L (3.5-5.5); Sodium, Blood 137.0 mmol/L (136-145); Total Protein, Blood 7.7 g/dL (6.4-8.2)
[2025-02-08] MEDS ORDERED: Ondansetron HCl 2 MG / ML 2ML Vial IV ONE (16:10)
[2025-02-08] MEDS ORDERED: NS 1,000 ML IV SCH (16:10)
[2025-02-08] MEDS ORDERED: Ketorolac Tromethamine 15mg Vial IV ONE (16:10)
[2025-02-08 18:33] LABS: Source, Urine Clean Catch
[2025-02-08 19:05] LABS: Bilirubin, Urine Neg (Neg); Color, Urine Red (P-Yellow); Glucose Qualitative, Urine Neg (Neg); Ketones, Urine Neg (Neg); Leukocyte Esterase, Urine 3+ (Neg); Protein, Urine 3+ (Neg); Specific Gravity, Urine 1.015 (1.003-1.022); Urobilinogen, Urine NORM (Normal)
[2025-02-08 19:24] LABS: Red Blood Cells, Urine TNTC /hpf (0-2); White Blood Cells, Urine 50-100 /hpf (0-5)
[2025-02-08] MEDS ORDERED: Trimethoprim/Sulfamethoxazole DS Tab PO ONE (19:35)
[2025-02-08] MEDS ORDERED: RX Prepack 6 Tabs Oxycodone 5mg UD ONE (19:35)
[2025-02-08] MEDS ORDERED: BACTRIM DS TAB1 EAC1 PO (19:47)
[2025-02-08] MEDS ORDERED: MISOPROSTOL PO (19:47)
[2025-02-08] MEDS ORDERED: ONDA4 PO (19:47)
[2025-02-08 19:55] VITALS: BP 144/94
== END 2025-02-08 19:57 | disposition home or self-care (01) ==
LOC: ER 14:46
PROVIDERS: Student in an Organized Health Care Education/Training Program
DX: O03.9 Complete or unspecified spontaneous abortion without complication (principal); Z88.1 Allergy status to other antibiotic agents; Z88.5 Allergy status to narcotic agent; Z91.013 Allergy to seafood; Z79.899 Other long term (current) drug therapy
CPT/HCPCS: 80053; 81001; 84702; 85025; 87077; 87086; 87186; 96374; 96375; 99284-25; A9270; J1885; J2405; J7030